=== PATIENT | male | born 1990 ===

== ENCOUNTER → 2018-12-20 | Outpatient (REF) | payer OTHER | LOC: ZZSENDIN 18:33 | PROVIDERS: ATTEND Family Medicine | DX: R82.998 Other abnormal findings in urine (principal) | CPT/HCPCS: 81001; 87088 ==

== ENCOUNTER → 2019-01-08 | Outpatient (CLI) | payer OTHER ==
--- NOTE | 2019-01-08 15:59 | RADIOLOGY IMAGING REPORT ---
[place] [facility] [place] Blake Graf : 1990 MR: [id number] V: [id number] EXAM DATE: ORDERING PHYSICIAN: LAN DELONG TECHNOLOGIST: Location: Patient: Blake Graf : 1990 Visit/Account:[id number] Date of Sevice: 01/08/2019 KIDNEYS EXAMINATION: Renal ultrasound. History: Urinary frequency COMPARISON STUDIES: FINDINGS: Kidneys: Right kidney- 10.4 x 5.6 x 4.8 cm Left kidney- 11.9 x 5 x 5.2 cm Uniform and symmetric blood flow in each kidney by Doppler ultrasound. Hydronephrosis: none Resistive index on the right 0.53 and on the left 0.63 Bladder: Prevoid volume 280 mL. Post void residual 9 mL. Bilateral ureteral jets are present Abdominal aorta and IVC: Aorta and IVC are patent by Doppler ultrasound. IMPRESSION: Unremarkable renal ultrasound. Post void bladder residual 9 mL Report Dictated By: Lashae Heath MD at 01/08/2019 3:52 PM Report E-Signed By: Lashae Heath MD at 01/08/2019 3:54 PM WSN:[id number]
== END ==
LOC: US 00:36
PROVIDERS: ATTEND Urology
DX: R35.0 Frequency of micturition (principal)
CPT/HCPCS: 76705